=== PATIENT | male | born 1985 | race Caucasian/White ===

== ENCOUNTER 2023-02-13 10:40 | Emergency (ER) | payer OTHER ==
--- OUTSIDE RECORDS SUMMARY | 2023-02-13 10:48 | XMS REPORT | Continuity of Care Document ---
:1985 Author Organization [facility] t Address [address] [place] [address] Care Team Providers Name Role Phone PCP, NO Primary Care Physician Unavailable Leatha Galvez Attending Clinician Unavailable KAYE YEAGER Attending Clinician Unavailable NEEMA RAMOS Attending Clinician Unavailable SHANNAN BALLARD Attending Clinician Unavailable Physician, No Primary or Family Admitting Clinician UnavailNEEMA Aguirre Admitting Clinician Unavailable SHANNAN BALLARD Admitting Clinician Unavailable Payers Payer Name Policy Type Policy Number Effective Date Expiration Date S ource Problems Condition Condition Condition Status Onset Resolution Last Treating Co mments Source Name Details Category Date Date Treatment Clinician Date Kidney Kidney Problem [facility] (LUF/LI V/SA) Traumatic Traumatic Problem Active [facility] (LUF/LI V/SA) Seizure Seizure Problem [facility] (LUF/LI V/SA) Allergies, Adverse Reactions, Alerts Allergy Allergy Status Severity Reaction(s) Onset Inactive Treating Comm ents Source Name Type Date Date Clinician No Known DA Active [facility] [place] [facility] No Known DA [facility] (LUF/LI V/SA) Social History Smoking Status Start Date Stop Date Source Current every day smoker [facility] (LUF/RAMOS/SA) Medications Ordered Filled Start Stop Current Ordering Indication Dosage Frequency Signature Comments Components Source Medication Medication Date Date Medication? Clinician (SIG) Name Name kala morenoph Yes [address] [facility] en 325 MG / en 325 MG / 5-05 L [facility]kes hydrocodone hydrocodone 00:00: Memoria bitartrate bitartrate 00 l 10 MG Oral 10 MG Oral (EILEEN F/LI Tablet Tablet V/SA) kala pabloaminoph Yes [address] [facility] en 325 MG / en 325 MG / 5-05 every 6 [facility] hydrocodone hydrocodone 00:00: hours as [facility]oria bitartrate bitartrate 00 needed. l 10 MG Oral 10 MG Oral (as needed (LUF/LI Tablet Tablet for pain) V/SA) ketorolac ketorolac Yes 10mg 4xD [facility] tromethamin tromethamin [facility] e 10 MG e 10 MG Memoria Oral Tablet Oral Tablet l (LUF/LI V/SA) ondansetron ondansetron Yes 4mg 3xD [facility] ([facility]F/LI V/SA) ketorolac ketorolac Yes 10mg 4xD orally [facility] tromethamin tromethamin every 6 [facility] e 10 MG e 10 MG hours as Memor ia Oral Tablet Oral Tablet needed. l (for pain) (LUF/LI V/SA) ondansetron ondansetron Yes 4mg 3xD orally [facility] 8 [facility] hours as [facility]oria needed. l (for (LUF/LI nausea/vom V/SA) iting) Vital Signs Vital Name Observation Time Observation Value Comments Source Height 2021-04-04 23:39:00 182.88 CM Weight 2021-04-04 23:39:00 104.32 KG Height 2020-03-18 14:24:00 182.88 CM Weight 2020-03-18 14:24:00 117 KG Body Temperature 2021-04-05 02:25:00 97.9 [degF] [facility] (LUF/RAMOS/SA) Pulse Rate 2021-04-05 02:25:00 89 /min [facility] (LUF/RAMOS/SA) Respiratory Rate 2021-04-05 02:25:00 16 /min [facility] (LUF/RAMOS/SA) O2% BldC Oximetry 2021-04-05 02:25:00 98 % [facility] (LUF/RAMOS/SA) BP Systolic 2021-04-05 02:25:00 128 mm[Hg] [facility] (LUF/RAMOS/SA) BP Diastolic 2021-04-05 02:25:00 88 mm[Hg] [facility] (LUF/RAMOS/SA) Height 2021-04-04 23:39:00 72 [in_i] [facility] (LUF/RAMOS/SA) Weight 2021-04-04 23:39:00 230 [lb_av] [facility] (LUF/RAMOS/SA) BMI (Body Mass Index) 2021-04-04 23:39:00 31.4 kg/m2 [facility] (F/RAMOS/SA) Procedures This patient has no known procedures. Encounters Start End Encounter Admission Attending Care Care Encounter Source Date/Time Date/Time Type Type Clinicians Facility Department ID 2019-04-03 Outpatient MHNE MHNE [id number] [place] 10:04:20 2022-11-17 2022-11-17 Emergency EM [facility] [id number] [facility] 18:18:00 19:55:00 [facility] 25 [facility] 2021-10-17 2021-10-18 Emergency ER LATONIA YEAGER [id number] CHRISTU 20:54:00 01:08:00 KAYE [id number] [facility] 2021-04-04 2021-04-05 HYDRONEEMA DESAI [facility] [id number] 23:23[facility]00 02:25[facility]00 [facility] RENL&URETR N, [address] [place], ([place] [address] 2021-04-04 2021-04-04 Inpatient [facility] [id number] [facility] 00:00:00 00:00:00 [facility] MARY [id number] [facility] N, [id number] [id number] [place], [place] [address] 2021-04-04 2021-04-04 Inpatient [facility] [id number] 00:00:00 00:00:00 [facility] [id number] [facility] N, [id number] [place], ([place] [address] Results Test Description Test Time Test Comments Results Result Comments Source URINALYSIS WITH MICROSCOPIC 2021-04-05 01:36:00 Test Item Value Reference Range Interpretation Comme nts Color (test code = UCOLR) Yellow Clarity (test code = UCLAR) Clear Glucose (test code = UGLUC) NEGATIVE NEGATIVE N Bilirubin (test code = UBILI) NEGATIVE NEGATIVE N Ketones (test code = UKET) NEGATIVE NEGATIVE N Specific [place] (test code = 1.010 1.005-1.030 A USPGR) Blood (test code = UBLD) MODERATE NEGATIVE A PH (test code = UPH) 8.5 4.5-8.0 A Protein (test code = UPROT) NEGATIVE NEGATIVE N Urobilinogen (test code = U 0.2 See_Comment N [Automated message] The UROB) system which ge nerated this result transmit crystal reference range: 0.2. The reference range was not u sed to interpret this result as normal/abnormal . Nitrite (test code = UNITR) NEGATIVE NEGATIVE N Leukocyte Esterase (test code NEGATIVE NEGATIVE N = ULEUK) WBC (test code = WBCUR) 0-1 0-5 A RBC (test code = RBCUR) 75-100 0-5 A Epithial Cells (test code = U 0-2 0-10 A EPI) Bacteria (test code = UBACT) None seen None Seen,Trace A [facility] [place]2021-[facility]-05 00:47:00 Test Item Value Reference Range Interpretation Comments Lipase (test code = LIPA) 179 U/L 8-223 [facility] [place]MP2021-05-05 00:47:00 Test Item Value Reference Range Interpretation Comments Glucose (test code 104 mg/dl 75-110 = GLU) BUN (test code = 16.0 mg/dl 6.0-17.0 BUN) Creatinine (test 1.2 mg/dl 0.4-1.2 code = CREA) Sodium (test code = 141 mmol/l 137-145 NA) Potassium (test 3.6 mmol/l 3.5-5.0 code = K) Chloride (test code 110 mmol/l 98-107 H = CL) CO2 (test code = 24 mmol/l 22-30 CO2) Calcium (test code 9.5 mg/dl 8.4-10.2 = CALC) T Protein (test 7.5 gm/dl 5.1-8.7 code = TP) Albumin (test code 4.1 gm/dl 3.5-4.6 = ALB) A/G Ratio (test 1.2 % 1.1-2.2 code = AGRAT) AST (SGOT) (test 19 U/L 11-36 code = AST) ALT (SGPT) (test 23 U/L 11-40 code = ALT) Alkaline Phos (test 76 U/L 47-114 code = ALKP) Total Bilirubin 0.3 mg/dl 0.2-1.2 (test code = TBIL) Globulin (test code 3.4 gm/dl 2.3-3.5 = GLOBU) Calcium, Corrected 9.4 mg/dl 8.4-10.2 Various f ormulas exist (test code = for corrected s domo CALCCORR) calcium results , each yielding differ ent values. This co rrected result was base d on the formula: Co rrected Calcium = Serum Calcium + [0.8 * ( 4 - SerumAlbumin)] EGFR if >60 [place] (test code mL/min/1.73m\\ = EGFRAA) S\\2 EGFR if Non- >60 Estimate d Glomerular [place] (test code mL/min/1.73m\\ Filtrat ion Rate (eGFR) = EGFRNA) S\\2 Reference Inter vals Decision Points for 18 years and older and average body ma ss: >= 60 Does not exc lude kidney disease. 30 - 59 Suggests mod erate chronic kidney disease and indicates t he need for further investigation including asses sment of proteinuria and cardiovascular factors. < 30 U sually indicates a nee d for referral for assessment and management of c hronic kidney failure. [facility]LV[facility] [id number] 00:32:54[facility]SA)Name: MARTÍNEZ PATEL : 1985 Sex: MEXAM: CT Abdomen and Pelvis WITH contrastINDICATION: [id number]: Abdominal painCOMPARISON: None.TECHNIQUE: Abdomen and pelvis were scanned utilizing a multidetector helicalscanner from the lung base tothe pubic symphysis after administration of IVcontrast. Coronal and sagittal reformations were obtained. Routine protocol wasperformed. Scan was performed when during portal venous phase.IV CONTRAST: 10 0 mL of Isovue 300ORAL CONTRAST: NoneCOMPLICATIONS: NoneRADIATION DOSE:Total DLP: 1369.8 mGy*cmEstimated effective dose: (DLP x 0.015 x size factor) mSvCTDIvol has been reviewed. It is below the limitsset by the RadiationProtocol Committee (RPC).Dose modulation, iterative reconstruction, and/or weight based adjustmentsof the mA/kV was utilized to reduce the radiation dose to as low as reasonablyachievable.FINDINGS:LINES and TUBES: None.LOWER THORAX: UnremarkableHEPATOBILIARY: No focal hepatic lesions. No biliary ductal dilation.GALLBLADDER: No radio-opaque stones or sludge. No wall thickening.SPLEE N: No splenomegaly.PANCREAS: No focal masses or ductal dilatation.ADRENALS: No adrenal nodulesKIDNEYS/URETERS: Mild left hydroureteronephrosis with left ureteral urothelialthickening and enhancement. Punctate 1 mm calculus at the left UVJ. Normal rightkidney and ureter.GI TRACT: No abnormal distention, wall thickening, or evidence of bowelobstruction. Appendix is normal.PELVIC ORGANS/BLADDER: Unremarkable.LYMPH NODES: Scattered mildly enlarged mesenteric and right lower quadrant lymphnodes measuringup to 6 mm in short axis.VESSELS: Unremarkable.PERITONEUM / RETROPERITONEUM: No free air or fluid.BONES: Unremarkable.SOFT TISSUES: Unremarkable.IMPRESSION:1. 1 mm calculus at the left UVJ with mild left hydroureteronephrosis.2. Nonspecific scattered mildly enlarged mesenteric and right lower quadrantlymph nodes measuring up to 6 mm in short axis. Findings may be reactive.Recommend followup CT abdomen and pelvis with contrast in 3 months as an earlylymphoproliferative disease or less likely metastatic lymphadenopathy could havea similar appearance.This final report was electronically signed by Dr Aubree Fragoso 04/05/2021 12:27 AMDictated By: AUBREE FRAGOSODate: 04/05/2021 00:27[facility] [place] WITH AUTO [id number] 23:58:00 Test Item Value Reference Range Interpretation Comments WBC (test code = 6.82 10\\S\\3/ul 4.80-10.80 WBC) RBC (test code = 4.30 10\\S\\6/ul 4.70-6.10 L RBC) Hemoglobin (test 13.0 gm/dl 14.0-18.0 L code = HGB) Hematocrit (test 37.5 % 42.0-50.0 L code = HCT) MCV (test code = 87.2 fL 80.0-94.0 MCV) MCH (test code = 30.2 pg 27.0-31.0 MCH) MCHC (test code = 34.7 gm/dl 33.0-37.0 MCHC) RDW (test code = 12.5 % 11.5-14.5 RDWVC) Platelet (test code 285 10\\S\\3/ul 130-400 = PLT) MPV (test code = 8.8 fL 7.4-10.4 A "NOT MEASUR ED" MPV) RESULTS ARE DIS PLAYED WHEN THE INSTRU MENT HAS A SUPPRESSE D OR UNREPORTABLE RE SULT. THIS WILL MOST OFTEN HAPPEN WITH THE MPV WHEN THERE IS A N ABNORMAL PLATEL ET DISTRIBUTION DU E TO A CRITICAL LOW VA LUE OR PLATELET CLUMPI NG. THE RDW MAY BE SUPPRESSED IF T HERE ARE MULTIPLE PE AKS PRESENT ON THE RBC HISTOGRAM. IN T HIS CASE, A MANUAL REVIEW OF THE SLIDE WI LL BE PERFORMED, AND RBC MORPHOLOGY WILL BE NOTED ON THE RE PORT. NE% (test code = 40.5 % 42.0-75.0 L NE) LY% (test code = 49.4 % 13.0-42.0 H LY) MO% (test code = 7.9 % 4.0-14.0 MO) EO% (test code = 1.5 % 1.0-5.0 EO) BA% (test code = 0.7 % 0.0-3.0 BA) IG% (test code = 0.0 % 0.0-0.4 IG%) [facility] [place] CHE[facility] AP/PA 1 [id number] 16:01:23 Portable chest March 18, 2020 1459 hrs.History: Altered mental statusThere are no prior studies for comparison. The lungs are hypoinflated but nodefinite infiltrate is identified. There is no pleural effusion. Cardiac size isat upper limits of normal for a portable exam and likely accentuated byhypoinflation. The bony thorax appears intact.Impression: No acute cardiopulmonary abnormality.This final report was electronically signed by Dr Javier Yousfi MD 03/18/20203:54 PMDictated By: Josseline YOUSIF: 03/18/2020 15:54[facility]CT HEAD W/O [id number] 15:59:43CT HEAD WITHOUT CONTRAST:INDICATION: Altered mental statusNoncontrast CT head was performed. Dose reduction technique was employed usingautomated exposure control and adjustment of mA and/or kV according to patientsize. Total DLP 1165 mGy-cm.FINDINGS:No intracranial hemorrhage, mass effect or midline shift is identified. Theventricular system is normal in size and configuration. The basal cisterns arepatent.The visualized portions of the mastoids, paranasal sinuses and orbits show nosignificant abnor mality.IMPRESSION:Negative CT head without contrast.This final report was electronically signed by Dr Javier Yousif MD 03/18/20203:53 PMDictated By: Josseline YOUSIF: 03/18/2020 15:53[facility] [id number] 15:14:00 Test Item Value Reference Range Interpretation Comments Lipase (test code = LIPA) 161 U/L 8-223 [facility] [place]CMP2020-04-17 15:14:00 Test Item Value Reference Range Interpretation Comments Glucose (test code 104 mg/dl 75-110 = GLU) BUN (test code = 9.0 mg/dl 6.0-17.0 BUN) Creatinine (test 1.0 mg/dl 0.4-1.2 code = CREA) Sodium (test code = 142 mmol/l 137-145 NA) Potassium (test 3.3 mmol/l 3.5-5.0 L code = K) Chloride (test code 108 mmol/l 98-107 H = CL) CO2 (test code = 27 mmol/l 22-30 CO2) Calcium (test code 8.5 mg/dl 8.4-10.2 = CALC) T Protein (test 6.1 gm/dl 5.1-8.7 code = TP) Albumin (test code 3.4 gm/dl 3.5-4.6 L = ALB) A/G Ratio (test 1.3 % 1.1-2.2 code = AGRAT) AST (SGOT) (test 23 U/L 11-36 code = AST) ALT (SGPT) (test 26 U/L 11-40 code = ALT) Alkaline Phos (test 82 U/L 47-114 code = ALKP) Total Bilirubin 0.2 mg/dl 0.2-1.2 (test code = TBIL) Globulin (test code 2.7 gm/dl 2.3-3.5 = GLOBU) Calcium, Corrected 9.0 mg/dl 8.4-10.2 Various f ormulas exist (test code = for corrected s domo CALCCORR) calcium results , each yielding differ ent values. This co rrected result was base d on the formula: Co rrected Calcium = Serum Calcium + [0.8 * ( 4 - SerumAlbumin)] EGFR if >60 [place] (test code mL/min/1.73m\\ = EGFRAA) S\\2 EGFR if Non- >60 Estimate d Glomerular [place] (test code mL/min/1.73m\\ Filtrat ion Rate (eGFR) = EGFRNA) S\\2 Reference Inter vals Decision Points for 18 years and older and average body ma ss: >= 60 Does not exc lude kidney disease. 30 - 59 Suggests mod erate chronic kidney disease and indicates the need for furthe r investigation including asses sment of proteinuria and cardiovascular factors. < 30 U sually indicates a nee d for referral for assessment and management of c hronic kidney failure. [facility] [place]TROPONIN-I [id number] 15:14:00 Test Item Value Reference Range Interpretation Comments Troponin-I (test <0.015 ng/ml 0.000-0.034 N The [address] r[address]ile URL code = TROP) is 0.045 ng/mL for the Siemens [place]cord T roponin I. The Joint Europ [facility] Society of Cardiology/[facility] College of Card iology (ESC/ACC) and jason trivedi [facility] of Clinical [place] cristiane Standards of La boratory Practices (NACB ) recommends that the diagnosis of AM I includes the presence of clinical history suggest macy of Acute Coronary Syndrome (ACS) and a max imum concentration o f cardiac troponin exceed ing the 99th percentile of a normal referenc e population [upp er reference limit (URL)] on at least one oc casion during the firs t 24 hours after the clini marialuisa event. [facility] MilwaukeePRO-BNP(B-Type Natriuretic Peptide)2020-03-18 15:14:00 Test Item Value Reference Range Interpretation Comments Pro-BNP(B-Peptide) (test code = 73 pg/ml 0-125 PROBNP) [facility] MilwaukeeCB WITH AUTO [id number] 14:46:00 Test Item Value Reference Range Interpretation Comments WBC (test code = 8.24 10\\S\\3/ul 4.80-10.80 WBC) RBC (test code = 4.01 10\\S\\6/ul 4.70-6.10 L RBC) Hemoglobin (test 12.4 gm/dl 14.0-18.0 L code = HGB) Hematocrit (test 37.1 % 42.0-50.0 L code = HCT) MCV (test code = 92.5 fL 80.0-94.0 MCV) MCH (test code = 30.9 pg 27.0-31.0 MCH) MCHC (test code = 33.4 gm/dl 33.0-37.0 MCHC) RDW (test code = 11.7 % 11.5-14.5 RDWVC) Platelet (test code 243 10\\S\\3/ul 130-400 = PLT) MPV (test code = 9.4 fL 7.4-10.4 A "NOT MEASUR ED" MPV) RESULTS ARE DIS PLAYED WHEN THE INSTRU MENT HAS A SUPPRESSE D OR UNREPORTABLE RE SULT. THIS WILL MOST OFTEN HAPPEN WITH THE MPV WHEN THERE IS A N ABNORMAL PLATEL ET DISTRIBUTION DU E TO A CRITICAL LOW VA LUE OR PLATELET CLUMPI NG. THE RDW MAY BE SUPPRESSED IF T HERE ARE MULTIPLE PE AKS PRESENT ON THE RBC HISTOGRAM. IN T HIS CASE, A MANUAL REVIEW OF THE SLIDE WI LL BE PERFORMED, AND RBC MORPHOLOGY WILL BE NOTED ON THE RE PORT. NE% (test code = 59.5 % 42.0-75.0 NE) LY% (test code = 28.6 % 13.0-42.0 LY) MO% (test code = 8.3 % 4.0-14.0 MO) EO% (test code = 2.7 % 1.0-5.0 EO) BA% (test code = 0.4 % 0.0-3.0 BA) IG% (test code = 0.5 % 0.0-0.4 H IG%) [facility] [place]
--- NOTE | 2023-02-13 12:38 | ER ---
Nurse's Notes [facility] Name: Chad Crew Age: 37 yrs Sex: Male : 1985 Arrival Date: 02/13/2023 Time: 10:46 Bed 20 Private MD: Diagnosis: Other seizures;Dental caries, unspecified Presentation: 02/13 11:19 Chief complaint: Patient states: "my said that I probably had a seizure because I aa5 passed out and I was shaking, it happened twice, once at 3 am and another time about 1 hour ago". Pt c/o headache and toothache. Coronavirus screen: At this time, the client does not indicate any symptoms associated with coronavirus-19. Ebola Screen: Patient denies travel to an Ebola-affected area in the 21 days before illness onset. Initial Sepsis Screen: Does the patient meet any 2 criteria? HR > 90 bpm. Does the patient have a suspected source of infection? No. Patient's initial sepsis screen is negative. Risk Assessment: Do you want to hurt yourself or someone else? Patient reports no desire to harm self or others. Onset of symptoms was January 2023. 11:19 Acuity: FARIDA 2 aa5 11:19 Method Of Arrival: Ambulatory aa5 Historical: - Allergies: 11:22 No Known Allergies; aa5 - PMHx: 11:22 None; aa5 - PSHx: 11:22 hand; Tonsillectomy; aa5 - Immunization history:: Adult Immunizations unknown. - Social history:: Smoking status: Patient reports the use of cigarette tobacco products, smokes one pack cigarettes per day. Vital Signs: 11:19 BP 132 / 81; Pulse 99; Resp 18 S; Temp 98.5(O); Pulse Ox 99% on R/A; Weight 108.86 kg aa5 (R); Height 6 ft. 0 in. (R); 11:19 Body Mass Index 32.55 (108.86 kg, 182.88 cm) aa5 ED Course: 10:46 Patient arrived in ED. rg4 10:54 Ana Daniel PA-C is [facility]. sb4 10:54 Angelo Larose MD is Attending Physician. sb4 11:19 Arm band placed on. aa5 11:21 Triage completed. aa5 12:12 Elicia Crane RN is Primary Nurse. kc6 12:46 Primary Nurse role handed off by Elicia Crane RN aa5 12:47 Jose Kennedy MD is Referral Physician. sb4 12:49 Jose Kennedy MD is Referral Physician. sb4 Administered Medications: No medications were administered Outcome: 12:37 Patient left the ED. kc6 12:50 Discharge ordered by . sb4 Signatures: Kaylee Neely RN RN aa5 Melonie Stanley rg4 Elicia Crane RN RN kc6 Ana Daniel, PA-C PA-C sb4 Corrections: (The following items were deleted from the chart) 11:22 11:21 BP 132 / 81; Pulse 99bpm; Resp 18bpm; Spontaneous; aa5 aa5
--- NOTE | 2023-02-13 12:51 | EDPHYS ---
Physician Documentation [facility] [place] Name: Chad Crew Age: 37 yrs Sex: Male : 1985 Arrival Date: 02/13/2023 Time: 10:46 Bed 20 Private MD: ED Physician Angelo Larose Historical: - Allergies: 02/13 11:22 No Known Allergies; aa5 - PMHx: 11:22 None; aa5 - PSHx: 11:22 hand; Tonsillectomy; aa5 - Immunization history:: Adult Immunizations unknown. - Social history:: Smoking status: Patient reports the use of cigarette tobacco products, smokes one pack cigarettes per day. Vital Signs: 11:19 BP 132 / 81; Pulse 99; Resp 18 S; Temp 98.5(O); Pulse Ox 99% on R/A; Weight 108.86 kg aa5 (R); Height 6 ft. 0 in. (R); 11:19 Body Mass Index 32.55 (108.86 kg, 182.88 cm) aa5 MDM: 11:22 Patient medically screened. sb4 02/13 12:28 Order name: Basic Metabolic Panel sb4 02/13 12:28 Order name: CBC with Diff sb4 02/13 12:28 Order name: Magnesium sb4 02/13 12:28 Order name: UDS sb4 02/13 12:28 Order name: IV Saline Lock sb4 02/13 12:28 Order name: Labs collected and sent sb4 02/13 12:28 Order name: Acetaminophen sb4 02/13 12:28 Order name: ETOH Level sb4 02/13 12:28 Order name: Hepatic Function sb4 02/13 12:28 Order name: Salicylate sb4 Administered Medications: No medications were administered Disposition Summary: 02/13/23 12:50 Discharge Ordered Location: Home(02/13/23 12:50) sb4 Problem: an ongoing problem(02/13/23 12:50) sb4 Symptoms: are unchanged(02/13/23 12:50) sb4 Condition: Stable(02/13/23 12:50) sb4 Diagnosis - Other seizures(02/13/23 12:50) sb4 - Dental caries, unspecified(02/13/23 12:50) sb4 Followup: sb4 - With: Jose Kennedy MD - When: 2 - 3 days - Reason: Further diagnostic work-up, Recheck today's complaints, Re-evaluation by your physician Discharge Instructions: - Discharge Summary Sheet sb4 - Dental Caries, Adult sb4 - Seizure, Adult sb4 Forms: - Medication Reconciliation Form sb4 - Thank You Letter sb4 - Antibiotic Education sb4 - Prescription Opioid Use sb4 Signatures: Dispatcher [employer] Kaylee Patrick RN RN aa5 Elicia Crane RN RN kc6 Ana Daniel, PA-C PA-C sb4 Corrections: (The following items were deleted from the chart) 12:48 12:37 Home kc6 aa5 12:48 12:37 Stable kc6 aa5 12:48 12:48 an ongoing problem sb4 aa5 12:48 12:48 are unchanged sb4 aa5 12:48 12:48 Other seizures sb4 aa5 12:48 12:48 Dental caries, unspecified sb4 aa5 12:50 12:02 Head Brain Wo Cont+CT.RAD.BRZ ordered. EDMS EDMS
[2023-02-13 15:19] VITALS: BP 132/81; TEMP 98.5; O2SAT 99
== END 2023-02-13 12:53 | disposition home or self-care (01) ==
LOC: ER 10:40
DX: R56.9 Unspecified convulsions (principal); K02.9 Dental caries, unspecified; F17.210 Nicotine dependence, cigarettes, uncomplicated

== ENCOUNTER 2023-04-18 22:10 | Emergency (ER) | payer OTHER ==
--- OUTSIDE RECORDS SUMMARY | 2023-04-18 22:13 | XMS REPORT | Continuity of Care Document ---
:1985 Author Organization [facility] t Address [address] [facility] [address] [place] [address] Care Team Providers Name Role Phone PCP, [...] KG Body Temperature 2021-04-05 02:25:00 97.9 [degF] [facility] (LUF/RAMOS/SA) Pulse Rate 2021-04-05 02:25:00 89 /min [facility] (LUF/RAMOS/SA) Respiratory Rate 2021-04-05 02:25:00 16 /min [facility] (LUF/RAMOS/SA) O2% BldC Oximetry 2021-04-05 02:25:00 98 % [facility] (LUF/RAMOS/SA) BP Systolic 2021-04-05 02:25:00 128 mm[Hg] [facility] (LUF/RAMOS/SA) BP Diastolic 2021-04-05 02:25:00 88 mm[Hg] [facility] (LUF/RAMOS/SA) Height 2021-04-04 23:39:00 72 [in_i] [facility] (LUF/RAMOS/SA) Weight 2021-04-04 23:39:00 230 [lb_av] [facility] (LUF/RAMOS/SA) BMI (Body Mass Index) 2021-04-04 23:39:00 31.4 kg/m2 [facility] (F/RAMOS/SA) Procedures This patient has no known procedures. Encounters Start End Encounter Admission Attending Care Care Encounter Source Date/Time Date/Time Type Type Clinicians Facility Department ID 2019-04-03 Outpatient MHNE MHNE [id number] 10:04:20 2022-11-17 2022-11-17 Emergency EM LeonorDANILO [facility] [id number] 18:18:00 19:55:00 [facility] 25 [facility] 2021-10-17 2021-10-18 Emergency ER LATNOIA YEAGER [id number] CHRISTU 20:54:00 01:08:00 KAYE [id number] [facility] 2021-04-04 2021-04-05 HYDRONEEMA DESAI [facility] [id number] [facility] 23:23[facility]00 02:25[facility]00 [facility] u[facility] RENL&URETR N, [address] [place], [place] [address] 2021-04-04 2021-04-04 Inpatient [facility] [id number] [facility] 00:00:00 00:00:00 [facility] MARY [id number] [facility], [id number] [place], ([place] [address] 2021-04-04 2021-04-04 Inpatient [facility] [id number] [facility] 00:00:00 00:00:00 [facility] [id number] [facility], [id number] [place], ([place] [address] Results Test Description Test Time Test Comments Results Result Comments Source URINALYSIS WITH MICROSCOPIC 2021-04-05 01:36:00 Test Item Value Reference Range Interpretation Comme nts Color (test code = UCOLR) Yellow Clarity (test code = UCLAR) Clear Glucose (test code = UGLUC) NEGATIVE NEGATIVE N Bilirubin (test code = UBILI) NEGATIVE NEGATIVE N Ketones (test code = UKET) NEGATIVE NEGATIVE N Specific Mcdonald (test code = 1.010 1.005-1.030 A USPGR) [...] = UBACT) None seen None Seen,Trace A [facility]21-[facility] 00:47:00 Test Item Value Reference Range Interpretation Comments Lipase (test code = LIPA) 179 U/L 8-223 [facility]CMP2021-05-05 00:47:00 Test Item Value Reference Range Interpretation [...] ( 4 - SerumAlbumin)] EGFR if >60 Bahraini (test code mL/min/1.73m\\ = EGFRAA) S\\2 EGFR if Non- >60 Estimate d Glomerular Bahraini (test code mL/min/1.73m\\ Filtrat ion Rate (eGFR) [...] and management of c hronic kidney failure. [facility]LVIS [id number] 00:32:54[facility])Name: MARTÍNEZ PATEL : 1985 Sex: MEXAM: CT Abdomen and Pelvis WITH contrastINDICATION: [id number]: Abdominal painCOMPARISON: None.TECHNIQUE: Abdomen and pelvis were [...] 12:27 AMDictated By: AUBREE FRAGOSODate: 04/05/2021 00:27[facility] WITH AUTO [id number] 23:58:00 Test Item Value Reference Range Interpretation [...] (test code = 0.0 % 0.0-0.4 IG%) [facility] CHE[facility] AP/PA 1 [id number] 16:01:23 Portable chest March 18, 2020 1459 [...] electronically signed by Dr Javier Yousif MD 03/18/20203:54 PMDictated By: Josseline YOUSIF: 03/18/2020 15:54[facility] W/O [id number] 15:59:43CT HEAD WITHOUT CONTRAST:INDICATION: Altered mental statusNoncontrast [...] 03/18/20203:53 PMDictated By: Josseline YOUSIF: 03/18/2020 15:53[facility] [id number] 15:14:00 Test Item Value Reference Range Interpretation Comments Lipase (test code = LIPA) 161 U/L 8-223 [facility]CMP2020-04-17 15:14:00 Test Item Value Reference Range Interpretation [...] ( 4 - SerumAlbumin)] EGFR if >60 Bahraini (test code mL/min/1.73m\\ = EGFRAA) S\\2 EGFR if Non- >60 Estimate d Glomerular Bahraini (test code mL/min/1.73m\\ Filtrat ion Rate (eGFR) [...] and management of c hronic kidney failure. [facility]OPONIN-I [id number] 15:14:00 Test Item Value Reference Range Interpretation Comments Troponin-I (test <0.015 ng/ml 0.000-0.034 N [address] URL code = TROP) is 0.045 ng/mL for the Siemens [place] T roponin I. The Joint [facility] Society of Cardiology/[facility] College of Card iology (ESC/ACC) and jason trivedi [facility] of Clinical [place] cristiane Standards of [place] [...] 24 hours after the clini marialuisa event. [facility]-BNP(B-Type Natriuretic Peptide)2020-03-18 15:14:00 Test Item Value Reference Range Interpretation Comments Pro-BNP(B-Peptide) (test code = 73 pg/ml 0-125 PROBNP) [facility] ValleyCB WITH AUTO [id number] 14:46:00 Test Item Value Reference Range Interpretation [...] code = 0.5 % 0.0-0.4 H IG%) [facility] Notes Date/Time Note Provider Source 2022-11-17 18:33:00-00:00 [facility] ([facility]) EMERGENCY PROVIDER REPORT REPORT#:[id number] REPORT STATUS: Signed DATE:11/17/22 TIME: 1832 PATIENT: MARTÍNEZ PATEL UNIT #: [id number] ROOM/BED: AGE: 36 SEX: M PCP PHYS: No Primary or Family Ph ysician SERVICE AUTHOR: Yuliya Strange MD R2 * ALL edits or amendments must be made on the [employer]/computer document * Yuliya Strange 11/17/221832: HPI-General Illness General Initial Greet Date/Time 11/17/221818 Presentation Chief Complaint Jaw pain Free Text HPI Notes Free Text HPI Notes 36-year-old male with past medical history of TB I and PTSD presents to the ED via EMS with jaw pain. Patient states that this afternoon, he was driving and had sharp jaw pain on the ri ght side which then moved up his face and he started with a headache. The pain started sudden ly and felt like a sharp pain, at that time he also had some blurred vision in the righ t eye. It is mostly resolved after taking 2 Tylenol INSPECTOR TECHNICIAN and he still has a mild headache on the right side. The vision changes have almost completely resolv ed as well. Patient denies fever, focal weakness, altered mental status, tr auma, fall, chest pain, shortness of breath. He has had headaches in the past but these are typically throbbing and located interactive developer iorly. He does state that he has a bad tooth on the right lower jaw and it has been hurting him inte rmittently and recently has become more painful. Review of Systems Free Text ROS Notes Free Text ROS Notes Constitutional Denies: chills, fever Eyes Denies: swelling bilat. Reports blurred vision on right side Ears/Nose/Throat Denies: nasal congestion, sinus problem Respiratory Denies: shortness of breath, cough Cardiovascular Denies: chest pain, edema GI Denies: abdominal pain, nausea, vomiting Denies: dysuria, flank pain Musculoskeletal Denies: back pain, extremity pain Skin Denies: burn, rash Neurologic Denies: abnormal movement, change LOC. Reports headache Psychiatric Denies: agitation, change mental status Past Medical History - Adult Stated Complaint JAW PAIN Allergies Coded Allergies: No Known Allergies (02/24/17) Additional Medical History none Additional Surgical History none Alcohol Use Denies EtOH use Drug Use Denies recreational drugs Smoking status for patients 13 years old or olde r: Unknown,if ever smoked Physical Exam Vital Signs Vital Signs First Documented: Result Date Time Pulse Ox 98 11/17 1820 B/P 128/84 11/17 1820 B/P Mean 98 11/17 1820 Temp 36.6 11/17 1820 Pulse 125 11/17 1820 Resp 20 11/17 1820 Last Documented: Result Date Time Pulse Ox 95 11/17 1915 B/P 132/87 11/17 1915 B/P Mean 103 11/17 1915 Pulse 113 11/17 1915 Resp 21 11/17 1915 Temp 36.6 11/17 1820 Review of Vital Signs Reviewed Free Text PE Notes Free Text PE Notes General/Const awake, alert, no acute distress MS Head atraumatic, normocephalic Eyes atraumatic, PERRL, EOMI, no photophobia Ears/Nose/Throat atraumatic, airway patent, mucous membr anes moist, poor dentition with broken tooth on the right posterior molar without visua lized abscess collection, halitosis MS Neck atraumatic, supple, full range of motion, no mi dline tenderness, no bruit Resp/Chest atraumatic, breath sounds nml, breath sounds bi lateral, no respiratory distress, no rales, no wheezes Cardiovascular heart rate nml, regular rhythm, heart sounds nm l, no murmurs, peripheral pulses intact Abdomen/GI atraumatic, soft, non-tender, no guarding, no r ebound, no rigidity MS Back atraumatic, full range of motion, non-tender MS Extremities atraumatic, inspection nml, full range of motio n, no swelling Skin atraumatic, color nml, no rash, warm Neurologic oriented x3, speech nml, no motor deficits, no sensory deficits, cranial nerves II through XII grossly intact, normal amb ulation Psychiatric affect nml, mood nml Re-Evaluation MDM Free Text MDM Notes Free Text MDM Notes Clinical examination consistent with referred pa in from fracture tooth/dental infection. Presentation not consistent with neur ologic cause of symptoms, no focal neurodeficit on exam patient given pain me dications here. After pain medications he requests to leave, we will give p atient prescription for antibiotics to treat for pos sible underlying dental abscess and advised patient follow-up with dentist for further evaluation. ED Course Medication(s) Ordered Medication(s) Ordered: Central Nervous System Agents Sig/Hebert Start time Last Medication Dose Route Stop Time Status Admin Ketorolac 30 MG X1ED STA 11/17 1834 DC 11/17 Tromethamine IM 11/17 Gastrointestinal Drugs Sig/Hebert Start time Last Medication Dose Route Stop Time Status Admin Metoclopramide HCl 10 MG X1ED STA 11/17 1834 DC 11/17 IM 11/17 Patient Discharge Departure Vital Signs/Condition Vital Signs First Documented: Result Date Time Pulse Ox 98 11/17 1820 B/P 128/84 11/170 B/P Mean 98 11/17 1820 Temp 36.6 11/17 1820 Pulse 125 12/17 1820 Resp 20 11/17 1820 Last Documented: Result Date Time Pulse Ox 95 11/17 1915 B/P 132/87 11/17 1915 B/P Mean 103 11/17 1915 Pulse 113 11/17 1915 Resp 21 11/17 1915 Temp 36.6 11/17 1820 All vital signs available at the time of this en try have been reviewed. Condition Stable, Improved Clinical Impression Clinical Impression Primary Impression: Dental infection Secondary Impressions: Broken tooth Disposition Decision Discharge )( Discharged to Home Yes )( Time 1934 )( Date 11/17/22 Discharge/Care Plan Counseled Regarding Diagnosi s, Prescriptions, Need for follow-up, When to return to ED (Auto) Prescriptions Current Visit Scripts AMOXICILLIN/CLAV K (AUGMENTIN 875/125 MG) 875 MG PO Q12H 10 Days #20 TABS Prescriptions Reviewed Risks, Benefits, Alternat macy treatment Patient Instructions ED Dental Abscess Additional Instructions Follow-up with a dentist for definitive treatmen t. Take antibiotics as prescribed.. Return for worsening symptoms. Departure Forms [facility] Discharge Note I have spoken with the patie nt and/or caregivers. I have explained the patient's condition, diagnoses and catracho atment plan based on the information available to me at this time. I have answered the patient's and/ or caregiver's questions and addressed any concerns. The patient and/or careg rudy have as good an understanding of the patient 's diagnosis, condition and treatment plan as can be expected at this point. The vital signs have bee n stable. The patient's condition is stable and appr opriate for discharge from the emergency department. The patient will pursue further outpatient evalu ation with the primary care physician or other designated or consulting phys ician as outlined in the discharge instructions. The patient and/or caregivers are agreeable to this plan of care and follow-up instructions have been exp lained in detail. The patient and/or caregivers have received these instructio ns in written format and have expressed an understanding of the discharge inst ructions. The patient and/or caregivers are aware that any significant change in condition or worsening of symptoms should prompt an immediate return to [facility] or the closest emergency department or a call to 911. Cata Galvez 11/17/22 2017: Physical Exam Vital Signs Review of Vital Signs Reviewed Physical Exam Resp/Chest Respiratory/Chest No respiratory distress Patient Discharge Departure Vital Signs/Condition Condition Stable Supervising Physician Note Resident Saw Pt This patient was seen by a resident. I have pers onally seen the patient, performed the critical or vásquez portions o f the service, and participated in the management of the patient. I have review ed and agree with the resident's note, and I have reviewed all labs , ECGs, and imaging studies or reports. I agree with this resident's findings, exam and plan. right lower 2nd molar chipped tooth sudden pain today radiating to right temporal no significant abscess, no invasive infections feeling well to go home abx dental f/u at 0034 Electronically Signed by Leatha Galvez MD on at 1947 RPT #:[id number] END OF REPORT
[2023-04-18] MEDS ORDERED: NA CHLORIDE 0.9% 1,000 ML ONE (23:05)
[2023-04-18 23:17] LABS: Protime INR 0.96
[2023-04-18 23:22] LABS: Absolute Lymphocytes (CBC) 2.8 K/uL (0.7-4.9); Hematocrit 40.9 % (39.6-49.0); Lymphocytes % 47.4 % (15.3-44.8); MCV 92.4 fL (80-100); RBC Red Blood Cell Count 4.42 M/uL (4.33-5.43)
--- NOTE | 2023-04-18 23:25 | ER ---
Nurse's Notes [facility] Name: Chad Crew Age: 37 yrs Sex: Male : 1985 Arrival Date: 04/18/2023 Time: 22:10 Bed 19 Private MD: Diagnosis: Bipolar disease, schizoaffective disorder, psychosis Presentation: 04/18 22:18 Chief complaint: Patient states: "Im hearing voices and seeing things that are not vg1 there like silhouettes and I feel like people are out to get me, this has been going on for a year but now its at a point that I cant" [facility]'" Stated "im not having suicidal thoughts but I feel like im going crazy" Denies SI/HI. " I just want some help please". Stated has as a support system but would like medical support as well. pt was called from outside, pt near vehicle smoking cigarette. Coronavirus screen: Vaccine status: Patient reports being unvaccinated. Client denies travel out of the [place] in the last 14 days. Ebola Screen: Patient negative for fever greater than or equal to 101.5 degrees Fahrenheit, and additional compatible Ebola Virus Disease symptoms Patient denies exposure to infectious person. Patient denies travel to an Ebola-affected area in the 21 days before illness onset. Initial Sepsis Screen: Does the patient meet any 2 criteria? HR > 90 bpm. Does the patient have a suspected source of infection? No. Patient's initial sepsis screen is negative. Risk Assessment: Do you want to hurt yourself or someone else? Patient reports no desire to harm self or others. Onset of symptoms was April 18, 2023. 22:18 Method Of Arrival: Ambulatory vg1 22:18 Acuity: FARIDA 2 vg1 Triage Assessment: 22:24 General: Appears in no apparent distress. uncomfortable, Behavior is calm, cooperative. vg1 Pain: Denies pain. Neuro: Level of Consciousness is awake, alert, obeys commands, Oriented to person, place, time, situation. Historical: - Allergies: 22:24 No Known Allergies; vg1 - PMHx: 22:24 PTSD; Anxiety; Depressive disorder; Bipolar disorder; Schizophrenia; ADHD; vg1 - PSHx: 22:24 Tonsillectomy; hand; vg1 - Immunization history:: Client reports having NOT received the Covid vaccine. - Social history:: Smoking status: Patient reports the use of cigarette tobacco products, smokes one-half pack cigarettes per day. Screenin:30 [facility] ED Fall Risk Assessment (Adult) History of falling in the last 3 months, lg3 including since admission No falls in past 3 months (0 pts). Abuse screen: Denies threats or abuse. Denies injuries from another. Nutritional screening: No deficits noted. Tuberculosis screening: No symptoms or risk factors identified. Assessment: 22:30 General: Appears in no apparent distress. comfortable, Behavior is calm, cooperative. lg3 Pain: Denies pain. Neuro: No deficits noted. Love Agitation-Sedation Scale (RASS): 0 - Alert and Calm Level of Consciousness is awake, alert, obeys commands, Oriented to person, place, time, situation. Cardiovascular: No deficits noted. Denies chest pain, shortness of breath, Capillary refill < 3 seconds Clubbing of nail beds is absent JVD is absent Patient's skin is warm and dry. Respiratory: No deficits noted. Airway is patent Respiratory effort is even, unlabored, Respiratory pattern is regular, symmetrical. GI: No deficits noted. No signs and/or symptoms were reported involving the gastrointestinal system. Abdomen is flat, non-distended. : No deficits noted. No signs and/or symptoms were reported regarding the genitourinary system. EENT: No deficits noted. No signs and/or symptoms were reported regarding the EENT system. Derm: No deficits noted. No signs and/or symptoms reported regarding the dermatologic system. Skin is intact, is healthy with good turgor, Skin is dry, Skin is normal, Skin temperature is warm. Musculoskeletal: No deficits noted. No signs and/or symptoms reported regarding the musculoskeletal system. Circulation, motion, and sensation intact. Range of motion: intact in all extremities. 22:30 General: pt denies any SI/HI ideations at this time . lg3 23:20 General: pt attempted to leave ED with IV in place. PT agreed to come back to room for lg3 IV removal. when asked what his reasoning for leaving was pt stated "because he doesn't want to be here and he's leaving" pt refused all interventions there after. pt then ambulated out of emergency department. provider notified. . 23:34 General: pt left prior to signing DC paperwork. lg3 Psych: 23:32 Gay Suicide Severity Screening: In the past month, have you wished you were lg3 or wished you could go to sleep and not wake up? Patient responds "No." "In the past month, have you actually had any thoughts of killing yourself?" Patient responds "no." "In your lifetime, have you ever done anything, started to do anything, or prepared to do anything to end your life?" Patient responds "no.". Subjective: Patient's mood is irritable, Hallucinations are visual. Objective: Patient is defensive, using poor eye contact, Speech is normal, Affect is appropriate. Interventions: Patient placed in hospital gown. Safety Checks: Visitors are present. Pt denies substance abuse. Vital Signs: 22:18 BP 124 / 79; Pulse 115; Resp 16; Temp 98.3(TE); Pulse Ox 100% on R/A; Weight 97.52 kg; vg1 Height 5 ft. 11 in. ; 23:00 BP 126 / 84; Pulse 98; Resp 17 S; Pulse Ox 100% on R/A; lg3 22:18 Body Mass Index 29.99 (97.52 kg, 180.34 cm) vg1 ED Course: 22:12 Patient arrived in ED. ag3 22:24 Triage completed. vg1 22:24 Arm band placed on. vg1 22:25 Deshaun Alvarenga MD is Attending Physician. sp3 22:30 Patient has correct armband on for positive identification. Placed in gown. Bed in low lg3 position. Call light in reach. Side rails up X 1. Client placed on continuous cardiac and pulse oximetry monitoring. NIBP monitoring applied. Door closed. Noise minimized. Warm blanket given. Family accompanied patient. 22:41 Inna Leonard, GUERLINE is Primary Nurse. lg3 22:55 Inserted saline lock: 20 gauge in right antecubital area, using aseptic technique. lg3 Blood collected. 22:56 Acetaminophen Sent. lg3 22:56 Basic Metabolic Panel Sent. lg3 22:56 CBC with Diff Sent. lg3 22:56 ETOH Level Sent. lg3 22:56 Hepatic Function Sent. lg3 22:56 PT-INR Sent. lg3 22:56 Ptt, Activated Sent. lg3 22:57 Salicylate Sent. lg3 23:32 No provider procedures requiring assistance completed. IV discontinued, intact, lg3 bleeding controlled, No redness/swelling at site. Pressure dressing applied. Administered Medications: 23:31 Discontinued: NS 0.9% IV 1000 ml IV at 1 bolus Per protocol; 1000 mL bolus lg3 23:00 Drug: NS 0.9% IV 1000 ml Route: IV; Rate: 1 bolus; Site: right antecubital; lg3 23:31 Follow up: IV Intake: 200ml lg3 Medication: 23:33 VIS not applicable for this client. lg3 Intake: 23:31 IV: 200ml; Total: 200ml. lg3 Outcome: 23:24 Discharge ordered by . sp3 23:33 Discharged to home ambulatory. lg3 23:33 Condition: stable 23:38 Patient left the ED. lg3 Signatures: Sushma Cedeño ag3 Inna Leonard RN RN lg3 Niesha Stanley RN RN vg1 Deshaun Alvarenga MD MD sp3 Corrections: (The following items were deleted from the chart) 22:32 22:18 Chief complaint: Patient states: "Im hearing voices and seeing things that are vg1 not there like silhouettes and I feel like people are out to get me, this has been going on for a year but now its at a point that I cant" Pt states has been going to [place] for help but "its not working'" Stated "im not having suicidal thoughts but I feel like im going crazy" Denies HI. " I just want some help please". Stated has as a support system but would like medical support as well. pt was called from outside, pt near vehicle smoking cigarette vg1
--- NOTE | 2023-04-18 23:25 | EDPHYS ---
Physician Documentation [facility] Name: Chad Crew Age: 37 yrs Sex: Male : 1985 Arrival Date: 04/18/2023 Time: 22:10 Bed 19 Private MD: ED Physician Deshaun Alvarenga HPI: 04/18 22:52 This 37 yrs old Male presents to ER via Ambulatory with complaints of Psych Problem. sp3 22:52 37-year-old male with a history of PTSD, anxiety, bipolar disease/schizoaffective sp3 disorder who is being treated at the [facility] now presents to the ED for second opinion type presentation for his psychosis. He states he is not completely happy with the medication regimen he has been treated with and the side effects. He is on Seroquel amongst other medications which she cannot recall. He states he is not suicidal or homicidal but does hear voices with no specific message as well as having feelings of persecution. He is here to seek second opinion and possible evaluation by some other team besides the [facility] system. He denies any somatic symptoms or pain at this time. Review of systems negative for headache, neck pain, chest pain, shortness of breath, dumping, nausea, vomiting, diarrhea, syncope, near syncope, travel history, fever, URI symptoms, known sick contacts, drugs or alcohol abuse, or any other signs or symptoms at this time.. Historical: - Allergies: 22:24 No Known Allergies; vg1 - PMHx: 22:24 PTSD; Anxiety; Depressive disorder; Bipolar disorder; Schizophrenia; ADHD; vg1 - PSHx: 22:24 Tonsillectomy; hand; vg1 - Immunization history:: Client reports having NOT received the Covid vaccine. - Social history:: Smoking status: Patient reports the use of cigarette tobacco products, smokes one-half pack cigarettes per day. ROS: 22:56 Constitutional: Negative for fever, chills, and weight loss, Eyes: Negative for injury, sp3 pain, redness, and discharge, ENT: Negative for injury, pain, and discharge, Neck: Negative for injury, pain, and swelling, Cardiovascular: Negative for chest pain, palpitations, and edema, Respiratory: Negative for shortness of breath, cough, wheezing, and pleuritic chest pain, Abdomen/GI: Negative for abdominal pain, nausea, vomiting, diarrhea, and constipation, Back: Negative for injury and pain, MS/Extremity: Negative for injury and deformity, Skin: Negative for injury, rash, and discoloration, Neuro: Negative for headache, weakness, numbness, tingling, and seizure, Allergy/Immunology: Negative for hives, rash, and allergies, Endocrine: Negative for neck swelling, polydipsia, polyuria, polyphagia, and marked weight changes, Hematologic/Lymphatic: Negative for swollen nodes, abnormal bleeding, and unusual bruising. 22:56 All other systems are negative. Exam: 22:56 Constitutional: This is a well developed, well nourished patient who is awake, alert, sp3 and in no acute distress. Head/Face: Normocephalic, atraumatic. Eyes: Pupils equal round and reactive to light, extra-ocular motions intact. Lids and lashes normal. Conjunctiva and sclera are non-icteric and not injected. Cornea within normal limits. Periorbital areas with no swelling, redness, or edema. ENT: Nares patent. No nasal discharge, no septal abnormalities noted. External auditory canals are clear. Oropharynx with no redness, swelling, or masses, exudates, or evidence of obstruction, uvula midline. Mucous membranes moist. Neck: Trachea midline, no thyromegaly or masses palpated, and no cervical lymphadenopathy. Supple, full range of motion without nuchal rigidity, or vertebral point tenderness. No Meningismus. Chest/axilla: Normal chest wall appearance and motion. Nontender with no deformity. No lesions are appreciated. Respiratory: Lungs have equal breath sounds bilaterally, clear to auscultation and percussion. No rales, rhonchi or wheezes noted. No increased work of breathing, no retractions or nasal flaring. Abdomen/GI: Soft, non-tender, with normal bowel sounds. No distension or tympany. No guarding or rebound. No evidence of tenderness throughout. Back: No spinal tenderness. No costovertebral tenderness. Full range of motion. Skin: Warm, dry with normal turgor. Normal color with no rashes, no lesions, and no evidence of cellulitis. MS/ Extremity: Pulses equal, no cyanosis. Neurovascular intact. Full, normal range of motion. Neuro: Awake and alert, GCS 15, oriented to person, place, time, and situation. Cranial nerves II-XII grossly intact. Motor strength 5/5 in all extremities. Sensory grossly intact. Cerebellar exam normal. Normal gait. 22:56 Cardiovascular: Rate: tachycardic. 22:56 ECG was reviewed by the Attending Physician. EKG demonstrates sinus tachycardia at 108 bpm with normal intervals, slight leftward axis, normal QRS, nonspecific diffuse ST/T changes without evidence of acute ischemia. 22:56 Psych: Patient denies suicidal ideation and homicidal ideation. He does endorse psychosis with hearing voices with no specific message as well as having feelings of persecution. He does not appear to be responding to internal stimuli.. Vital Signs: 22:18 BP 124 / 79; Pulse 115; Resp 16; Temp 98.3(TE); Pulse Ox 100% on R/A; Weight 97.52 kg; vg1 Height 5 ft. 11 in. ; 23:00 BP 126 / 84; Pulse 98; Resp 17 S; Pulse Ox 100% on R/A; lg3 22:18 Body Mass Index 29.99 (97.52 kg, 180.34 cm) vg1 MDM: 22:33 Patient medically screened. sp3 22:58 Data reviewed: vital signs, nurses notes, lab test result(s), EKG. ED course: sp3 37-year-old male with extensive psychiatric history now presents with chief complaint psychosis and second opinion for his treatment plan. Will obtain routine laboratory values and drug screen and have mobile assessment team discussed with patient via telemedicine. We will give him what options we have available and he can decide whether he wants to [facility] with [facility] [place] [facility]. I do not believe he is a flight risk or has a high chance of suicide at this time. Disposition pending work-up and consultation with the psychiatric team.. 23:23 ED course: Patient's is now at the bedside. For an unknown reason, patient now has sp3 decided to leave this facility and continue [facility]. He remains without suicidal ideation and homicidal ideation. He does contract for safety and the safety of others. I advised him to return here at any time if he changes his mind otherwise this will serve as an informed discharge and he has good follow-up with the [facility] tomorrow as well as a hospital system. His will be with him. She does not give any reason for his change of mind on his care plan.. 04/18 22:38 Order name: Acetaminophen 3 04/18 22:38 Order name: Basic Metabolic Panel 3 04/18 22:38 Order name: CBC with Diff sp3 04/18 22:38 Order name: ETOH Level 3 04/18 22:38 Order name: Hepatic Function 3 04/18 22:38 Order name: PT-INR 3 04/18 22:38 Order name: Ptt, Activated sp3 04/18 22:38 Order name: Salicylate sp3 04/18 22:38 Order name: EKG; Complete Time: 22:38 3 04/18 22:38 Order name: EKG - Nurse/Tech; Complete Time: 22:56 3 04/18 22:38 Order name: IV Saline Lock; Complete Time: 22:56 sp3 04/18 22:38 Order name: Labs collected and sent; Complete Time: 22:56 3 04/18 22:38 Order name: Suicide Screening ([place]); Complete Time: 22:56 sp3 Administered Medications: 23:31 Discontinued: NS 0.9% IV 1000 ml IV at 1 bolus Per protocol; 1000 mL bolus lg3 23:00 Drug: NS 0.9% IV 1000 ml Route: IV; Rate: 1 bolus; Site: right antecubital; lg3 23:31 Follow up: IV Intake: 200ml lg3 Disposition Summary: 04/18/23 23:24 Discharge Ordered Location: Home sp3 Condition: Stable sp3 Diagnosis - Bipolar disease, schizoaffective disorder, psychosis sp3 Followup: sp3 - With: Private Physician - When: Upon discharge from the Emergency Department - Reason: Continuance of care Discharge Instructions: - Discharge Summary Sheet sp3 - Psychosis sp3 Forms: - Medication Reconciliation Form sp3 - Thank You Letter sp3 - Antibiotic Education sp3 - Prescription Opioid Use sp3 Signatures: Dispatcher [employer] Inna Yusuf RN RN lg3 Niesha Stanley RN RN vg1 Deshaun Alvarenga MD MD sp3
[2023-04-18 23:56] LABS: ALT/SGPT 36 U/L (16-61); AST/SGOT 32 U/L (15-37); Albumin 3.7 g/dL (3.4-5.0); Alkaline Phosphatase 79 U/L (45-117); BUN Blood Urea Nitrogen 14 mg/dL (7-18); Bicarbonate 27 mEq/L (21-32); Bilirubin Direct < 0.1 mg/dL (0-0.2); Bilirubin Indirect, Calculated ND mg/dL (0.2-0.8); Bilirubin Total 0.3 mg/dL (0.2-1.0); Glomerular Filtration Rate 69 ml/min (=/>90); Glucose Level 119 mg/dL (74-106); Potassium 3.6 mEq/L (3.5-5.1); Protein, Total 6.7 g/dL (6.4-8.2); Sodium Level 138 mEq/L (136-145)
[2023-04-19 00:24] VITALS: TEMP 98.3; O2SAT 100
[2023-04-19 00:28] VITALS: BP 126/84
--- NOTE | 2023-04-21 17:37 | EKG ---
Test Date: 2023-04-18 Test Time: 22:53:24 Electric Motor Repairer: SVETLANA MEASUREMENT RESULTS: Intervals: Rate: 108 [place]: 170 QRSD: 104 QT: 346 QTc: 463 [place]: P: [place]: 170 QRS: 211 T: 154 INTERPRETIVE STATEMENTS: Sinus tachycardia Nonspecific ST and T wave abnormality Abnormal ECG No previous ECG available for comparison Electronically Signed On 04-21-23 17:34:46 CDT by Peng Tafoya
== END 2023-04-18 23:38 | disposition home or self-care (01) ==
LOC: ER 22:10
DX: F25.0 Schizoaffective disorder, bipolar type (principal); F17.210 Nicotine dependence, cigarettes, uncomplicated
CPT/HCPCS: 93005; 85025; 80048; 36415; 85610; 80076; 85730; 99285; J7030; G0480 ×3